=== PATIENT | male | born 1975 | race African-American/Black ===

== ENCOUNTER 2022-04-06 01:28 | Inpatient (IN) | payer OTHER, MEDICAID ==
[~2022-04-06] VITALS: Ht 180.3 cm; Wt 170.1 kg
[2022-04-06 01:42] VITALS: BP_SYST 196
[2022-04-06] MEDS ORDERED: AMPICILLIN SODIUM/SULBACTAM NA 3 GM in NS 100 ML IV ONE (01:45)
[2022-04-06] MEDS ORDERED: FUROSEMIDE 40 MG/4 ML VIAL IVP ONE (01:45)
[2022-04-06 02:48] LABS: BILIRUBIN,URINE NEGATIVE (NEGATIVE); BLOOD, URINE NEGATIVE (NEGATIVE); CLARITY/URINE CLEAR (CLEAR); COLOR,URINE YELLOW (YELLOW); GLUCOSE,URINE NEGATIVE (NEGATIVE); KETONES,URINE NEGATIVE (NEGATIVE); LEUKOCYTE ESTERASE ,URINE NEGATIVE (NEGATIVE); NITRITE, URINE NEGATIVE (NEGATIVE); PH,URINE 6.5 (5.0-8.0); PROTEIN URINE NEGATIVE (NEGATIVE)
[2022-04-06] MEDS ORDERED: ALBUTEROL SULFATE 0.083% 2.5 MG/3 ML VIAL.NEB INH ONE (03:00)
[2022-04-06 03:03] LABS: BASOPHILS % (AUTO) 0.3 % (0.0-2.0); EOSINOPHILS # (AUTO) 0.3 K/uL (0.0-0.4); EOSINOPHILS % (AUTO) 2.7 % (0.0-4.0); HEMATOCRIT 34.5 % (36-54); HEMOGLOBIN 11.4 g/dL (14.0-18.0); LYMPHOCYTES # (AUTO) 1.2 K/uL (1.0-5.5); LYMPHOCYTES % (AUTO) 10.1 % (20.5-51.5); MEAN CORPUSCULAR HEMOGLOBIN 27 pg (27-31); MEAN CORPUSCULAR HGB CONC 33 % (32-36); MEAN CORPUSCULAR VOLUME 82 fL (79.0-98.0); MONOCYTES # (AUTO) 0.7 K/uL (0.0-1.0); MONOCYTES % (AUTO) 5.6 % (1.7-9.3); NEUTROPHILS # (AUTO) 9.7 K/uL (1.8-7.7); NEUTROPHILS % (AUTO) 81.3 % (40.0-70.0); PLATELET COUNT (AUTO) 221 K/uL (130-430); RED BLOOD CELL COUNT(AUTO) 4.23 MIL/uL (4.2-6.2); RED CELL DISTRIBUTION WIDTH 15.8 % (9.0-15.0); WHITE BLOOD COUNT (AUTO) 11.9 K/uL (4.8-10.8)
[2022-04-06 03:05] LABS: BARBITURATE, URINE NEGATIVE (NEG <=200); BENZODIAZEPINE, URINE POSITIVE (NEG <=150); CANNABINOID, URINE NEGATIVE (NEG <=50); COCAINE, URINE NEGATIVE (NEG <=150); METHAMPHETAMINES SCREEN,URINE NEGATIVE (NEG <=500); OPIATE, URINE NEGATIVE (NEG <=100); PHENCYCLIDINE SCREEN,URINE NEGATIVE (NEG <=25); UR TRICYCLIC ANTIDEPRESSANTS NEGATIVE (NEG <=300); URINE AMPHETAMINE NEGATIVE (NEG <=500); URINE METHADONE NEGATIVE (NEG <=200); URINE OXYCODONE SCREEN NEGATIVE (NEG <=100); URINE PROPOXYPHENE SCREEN NEGATIVE (NEG <=300)
[2022-04-06 03:18] LABS: CALCIUM 8.1 mg/dL (8.4-11.0); CREATININE 0.95 mg/dL (0.55-1.30)
[2022-04-06 03:23] LABS: ALBUMIN 2.9 g/dL (3.4-4.8); TOTAL BILIRUBIN 0.4 mg/dL (0.0-1.0)
[2022-04-06] MEDS ORDERED: AMPICILLIN SODIUM/SULBACTAM NA 3 GM VIAL ONE (03:56)
[2022-04-06] MEDS ORDERED: FUROSEMIDE 40 MG/4 ML VIAL ONE (04:00)
[2022-04-06] MEDS ORDERED: ONDANSETRON HCL 4 MG/2 ML VIAL IVP PRN (06:30)
[2022-04-06] MEDS ORDERED: HYDROcodone/ACETAMIN 5-325 MG TAB (NORCO/ VICODIN) PO PRN (06:30)
[2022-04-06] MEDS ORDERED: ACETAMINOPHEN 325 MG TABLET PO PRN ×2 (06:30→06:45)
[2022-04-06] MEDS ORDERED: NALOXONE HCL 0.4 MG/ML AMP (NARCAN) IVP PRN ×2 (06:30)
[2022-04-06] MEDS ORDERED: FURO40TA5 PO (10:27)
[2022-04-06] MEDS ORDERED: DILT-33 PO (10:27)
[2022-04-06] MEDS ORDERED: GABA-529 PO (10:27)
[2022-04-06] MEDS ORDERED: BENA-6 PO (10:27)
[2022-04-06] MEDS ORDERED: METO50TA16 PO (10:27)
[2022-04-06] MEDS ORDERED: DOXYCYCLINE HYCLATE 100 MG VIAL IV ONE (10:35)
[2022-04-06] MEDS: DOXYCYCLINE HYCLATE 100 MG in D5W 100 ML IV SCH ×2 (11:06→22:24)
[2022-04-06] MEDS: HYDROcodone/ACETAMIN 10-325 MG TAB PO PRN ×2 (11:10→17:51)
[2022-04-06] MEDS ORDERED: FUROSEMIDE 40 MG TABLET PO ONE (11:15)
[2022-04-06] MEDS ORDERED: METOPROLOL TARTRATE 50 MG TABLET PO ONE (11:15)
[2022-04-06] MEDS ORDERED: DILTIAZEM HCL 180 MG CAP.SR.24H PO ONE (11:15)
[2022-04-06] MEDS ORDERED: DILTIAZEM HCL 180 MG CAP.SR.24H PO SCH (12:45)
[2022-04-06] MEDS ORDERED: METOPROLOL SUCCINATE 50 MG TAB.SR.24H (TOPROL XL) PO SCH (12:45)
[2022-04-06] MEDS ORDERED: BENAZEPRIL HCL 20 MG TABLET (LOTENSIN) PO ONE (12:45)
[2022-04-06] MEDS ORDERED: IPRATROPIUM/ALBUTEROL SULFATE 3 ML AMPUL.NEB (DUONEB) INH ONE (13:30)
[2022-04-06] MEDS ORDERED: NORMAL SALINE 5 ML DISP.SYRIN IVF SCH (14:00)
[2022-04-06] MEDS: NORMAL SALINE 5 ML DISP.SYRIN IVF SCH (15:09)
[2022-04-06] MEDS ORDERED: NICOTINE 21 MG/24 HR PATCH.TD24 TD ONE (15:15)
[2022-04-06] MEDS ORDERED: HYDROcodone/ACETAMIN 10-325 MG TAB ONE (17:56)
[2022-04-06 20:00] VITALS: BP_SYST 125
[2022-04-06] MEDS: GABAPENTIN 100 MG CAPSULE PO SCH (22:25)
[2022-04-06] MEDS: lisinopriL 20 MG TABLET PO SCH (22:37)
[2022-04-06 22:44] VITALS: BP_SYST 125
[2022-04-06] MEDS: BENZOCAINE/MENTHOL 1 EACH LOZENGE MM PRN (23:01)
[2022-04-07] MEDS: NORMAL SALINE 5 ML DISP.SYRIN IVF SCH ×3 (01:38→15:37)
[2022-04-07 06:35] LABS: CREATININE 0.94 mg/dL (0.55-1.30)
[2022-04-07 07:53] LABS: BASOPHILS % (AUTO) 0.2 % (0.0-2.0); EOSINOPHILS # (AUTO) 0.3 K/uL (0.0-0.4); EOSINOPHILS % (AUTO) 2.7 % (0.0-4.0); HEMATOCRIT 32.6 % (36-54); LYMPHOCYTES # (AUTO) 1.5 K/uL (1.0-5.5); LYMPHOCYTES % (AUTO) 13.8 % (20.5-51.5); MEAN CORPUSCULAR HEMOGLOBIN 28 pg (27-31); MEAN CORPUSCULAR HGB CONC 34 % (32-36); MEAN CORPUSCULAR VOLUME 82 fL (79.0-98.0); MONOCYTES # (AUTO) 0.7 K/uL (0.0-1.0); MONOCYTES % (AUTO) 6.3 % (1.7-9.3); NEUTROPHILS # (AUTO) 8.2 K/uL (1.8-7.7); PLATELET COUNT (AUTO) 205 K/uL (130-430); RED BLOOD CELL COUNT(AUTO) 3.96 MIL/uL (4.2-6.2); RED CELL DISTRIBUTION WIDTH 15.4 % (9.0-15.0); WHITE BLOOD COUNT (AUTO) 10.6 K/uL (4.8-10.8)
[2022-04-07 08:10] VITALS: BP_SYST 132
[2022-04-07] MEDS ORDERED: NICOTINE 21 MG/24 HR PATCH.TD24 TD SCH (09:00)
[2022-04-07] MEDS ORDERED: DILTIAZEM HCL 180 MG CAP.SR.24H PO SCH (09:00)
[2022-04-07] MEDS ORDERED: FUROSEMIDE 40 MG TABLET PO SCH (09:00)
[2022-04-07] MEDS ORDERED: METOPROLOL TARTRATE 50 MG TABLET PO SCH (09:00)
[2022-04-07] MEDS: GABAPENTIN 100 MG CAPSULE PO SCH ×2 (10:10→20:51)
[2022-04-07] MEDS: HYDROcodone/ACETAMIN 10-325 MG TAB PO PRN ×2 (10:21→15:47)
[2022-04-07] MEDS ORDERED: FUROSEMIDE 40 MG TABLET PO ONE (10:30)
[2022-04-07] MEDS ORDERED: DOXYCYCLINE HYCLATE 100 MG in D5W 100 ML IV SCH (11:00)
[2022-04-07] MEDS: BENZOCAINE/MENTHOL 1 EACH LOZENGE MM PRN ×2 (11:01→20:51)
[2022-04-07] MEDS ORDERED: FUROSEMIDE 40 MG/4 ML VIAL IVP SCH (12:40)
[2022-04-07] MEDS ORDERED: ALBUTEROL SULFATE 0.083% 2.5 MG/3 ML VIAL.NEB INH PRN (16:15)
[2022-04-07] MEDS: lisinopriL 20 MG TABLET PO SCH (20:52)
[2022-04-08] MEDS ORDERED: HYDR-3917 PO (02:48)
[2022-04-08] MEDS ORDERED: DOXY100C PO (02:48)
[2022-04-08] MEDS ORDERED: ALBMDI INH (03:04)
[2022-04-08] MEDS ORDERED: FUROSEMIDE 40 MG TABLET PO SCH (09:00)
== END 2022-04-07 21:40 | disposition left against medical advice (07) | DRG 602 ==
LOC: SED 01:28 → STU 04:19
PROVIDERS: ADMIT Preventive Medicine Preventive Medicine/Occupational Environmental Medicine; ATTEND Preventive Medicine Preventive Medicine/Occupational Environmental Medicine
DX: L03.116 Cellulitis of left lower limb (principal); I50.23 Acute on chronic systolic (congestive) heart failure; Z68.43 Body mass index [BMI] 50.0-59.9, adult; E44.0 Moderate protein-calorie malnutrition; I11.0 Hypertensive heart disease with heart failure; I50.9 Heart failure, unspecified; E66.01 Morbid (severe) obesity due to excess calories; F12.10 Cannabis abuse, uncomplicated; F15.10 Other stimulant abuse, uncomplicated; J44.9 Chronic obstructive pulmonary disease, unspecified; I89.0 Lymphedema, not elsewhere classified; Z20.822 Contact with and (suspected) exposure to COVID-19; Z72.0 Tobacco use; Z59.00 Homelessness unspecified; Z88.8 Allergy status to other drugs, medicaments and biological substances; Z79.899 Other long term (current) drug therapy
CPT/HCPCS: 36415; 71045; 80048; 80053; 80307; 81003; 83605; 83880; 84484; 85025; 87040; 93005; 93306; 93970; 94640; 94760; 96365; 96375; 99285; G0378; J0295; J1940; J3490; J7060; J7613

== ENCOUNTER 2022-04-07 23:53 | Emergency (ER) | payer OTHER, MEDICAID ==
[~2022-04-07] VITALS: Ht 180.3 cm; Wt 172.4 kg
[~2022-04-07 23:53] MED LIST: BENA-6 PO; DILT-33 PO; FURO40TA5 PO; GABA-529 PO; METO50TA16 PO
[2022-04-08] VITALS: BP_SYST 135
[2022-04-08 01:05] LABS: BASOPHILS % (AUTO) 0.4 % (0.0-2.0); EOSINOPHILS # (AUTO) 0.4 K/uL (0.0-0.4); EOSINOPHILS % (AUTO) 3.7 % (0.0-4.0); HEMATOCRIT 34.8 % (36-54); HEMOGLOBIN 11.3 g/dL (14.0-18.0); LYMPHOCYTES # (AUTO) 1.4 K/uL (1.0-5.5); MEAN CORPUSCULAR HEMOGLOBIN 27 pg (27-31); MEAN CORPUSCULAR HGB CONC 33 % (32-36); MEAN CORPUSCULAR VOLUME 83 fL (79.0-98.0); MONOCYTES # (AUTO) 0.7 K/uL (0.0-1.0); MONOCYTES % (AUTO) 7.1 % (1.7-9.3); NEUTROPHILS # (AUTO) 7.5 K/uL (1.8-7.7); NEUTROPHILS % (AUTO) 74.8 % (40.0-70.0); PLATELET COUNT (AUTO) 233 K/uL (130-430); RED BLOOD CELL COUNT(AUTO) 4.21 MIL/uL (4.2-6.2); RED CELL DISTRIBUTION WIDTH 15.7 % (9.0-15.0); WHITE BLOOD COUNT (AUTO) 10.1 K/uL (4.8-10.8)
[2022-04-08 01:57] LABS: ALBUMIN 2.9 g/dL (3.4-4.8); CALCIUM 8.9 mg/dL (8.4-11.0); CREATININE 1.1 mg/dL (0.55-1.30); TOTAL BILIRUBIN 0.2 mg/dL (0.0-1.0)
[2022-04-08] MEDS ORDERED: DOXYCYCLINE HYCLATE 100 MG CAPSULE PO ONE (02:45)
[2022-04-08 02:47] LABS: BILIRUBIN,URINE NEGATIVE (NEGATIVE); BLOOD, URINE NEGATIVE (NEGATIVE); CLARITY/URINE CLEAR (CLEAR); COLOR,URINE YELLOW (YELLOW); GLUCOSE,URINE NEGATIVE (NEGATIVE); KETONES,URINE NEGATIVE (NEGATIVE); LEUKOCYTE ESTERASE ,URINE NEGATIVE (NEGATIVE); NITRITE, URINE NEGATIVE (NEGATIVE); PH,URINE 6.5 (5.0-8.0); PROTEIN URINE NEGATIVE (NEGATIVE); UROBILINOGEN,URINE 0.2 (0.2-1.0)
[2022-04-08] MEDS ORDERED: HYDR-3917 PO (02:48)
[2022-04-08] MEDS ORDERED: DOXY100C PO (02:48)
[2022-04-08 03:01] LABS: BARBITURATE, URINE NEGATIVE (NEG <=200); BENZODIAZEPINE, URINE NEGATIVE (NEG <=150); CANNABINOID, URINE NEGATIVE (NEG <=50); COCAINE, URINE NEGATIVE (NEG <=150); METHAMPHETAMINES SCREEN,URINE NEGATIVE (NEG <=500); OPIATE, URINE POSITIVE (NEG <=100); PHENCYCLIDINE SCREEN,URINE NEGATIVE (NEG <=25); UR TRICYCLIC ANTIDEPRESSANTS NEGATIVE (NEG <=300); URINE AMPHETAMINE NEGATIVE (NEG <=500); URINE METHADONE NEGATIVE (NEG <=200); URINE OXYCODONE SCREEN NEGATIVE (NEG <=100); URINE PROPOXYPHENE SCREEN NEGATIVE (NEG <=300)
[2022-04-08] MEDS ORDERED: ALBMDI INH (03:04)
[2022-04-08 03:26] VITALS: BP_SYST 159
== END 2022-04-08 03:26 | disposition home or self-care (01) ==
LOC: SED 23:53
DX: L03.116 Cellulitis of left lower limb (principal); I89.0 Lymphedema, not elsewhere classified; E66.01 Morbid (severe) obesity due to excess calories; F19.10 Other psychoactive substance abuse, uncomplicated; I10 Essential (primary) hypertension; I50.9 Heart failure, unspecified; J44.9 Chronic obstructive pulmonary disease, unspecified; Z68.43 Body mass index [BMI] 50.0-59.9, adult; Z59.00 Homelessness unspecified; Z88.8 Allergy status to other drugs, medicaments and biological substances; Z79.899 Other long term (current) drug therapy
CPT/HCPCS: 36415; 71045; 80053; 80307; 81003; 83880; 84484; 85025; 93005; 99285